=== PATIENT | female | born 1960 | race Caucasian/White ===

== ENCOUNTER 2020-01-09 13:08 | Emergency (ER) | payer BC, MEDICARE, SELFPAY ==
[2020-01-09 13:05] VITALS: BP 133/88; PULSE 80; RESP 18; TEMP 36.9; O2SAT 98
--- NOTE | 2020-01-09 13:15 | ED.FALL ---
HPI - Fall General Chief Complaint: Fall Stated Complaint: FALL/FACIAL LAC Source: patient Mode of arrival: ambulatory Limitations: no limitations History of Present Illness HPI Narrative: Patient is a 59-year-old female who presents to emergency department for evaluation of injuries related to tripping over a hose falling striking the face and injuring the right hand just prior to arrival patient notes wound to the right brow and right hand. Patient notes minimal discomfort states her tetanus is not up-to-date. Patient denies any recent illness patient denies anticoagulant use. Patient presents per EMS Related Data Home Medications Medication Instructions Recorded Confirmed gabapentin 600 mg PO DAILY 01/09/20 01/09/20 levetiracetam [Keppra] 1,000 mg PO BID 01/09/20 01/09/20 Allergies Allergy/AdvReac Type Severity Reaction Status Date / Time No Known Allergies Allergy Verified 01/09/20 13:11 Review of Systems Review of Systems: All systems reviewed & are unremarkable except as noted in HPI and below PMFSH Past Medical History Medical History (Updated 01/09/20 @ 14:07 by Nima Mendez PA-C) Lymphedema Social History Social History (Updated 01/09/20 @ 13:16 by Nima Mendez PA-C) Smoking status: Never smoker Gender identity (if verbalized by the patient): Female Exam Narrative: Exam Narrative: GENERAL: Well-appearing, well-nourished, and in no acute distress. HEAD: Normocephalic, superficial laceration the right lateral brow EYES: PERRLA and EOMI. ENT: Nares clear, no rhinorrhea or epistaxis. Mucous membranes moist. Oropharynx without tonsillar hypertrophy exudate or other lesions. NECK: Supple. No adenopathy or masses. CHEST: Clear to auscultation. No respiratory distress. No wheezes rales or rhonchi HEART: Regular rate and rhythm. No murmur heard. Normal peripheral pulses. EXTREMITIES: Normal range of motion. No edema. No midline cervical thoracic or lumbar tenderness SKIN: Warm, dry, no rash. Superficial abrasions of the fourth and fifth digits of the right hand NEURO: No focal deficits. Alert and oriented x3. Cranial nerves II through XII grossly intact. Normal speech. Neurovascularly intact PSYCH: Normal mood and affect. Course Course Emergency Course: Patient in the room aware of case findings treatment plan and diagnosis agreeing to follow-up as directed or to return if symptoms worsen or concerns Vital Signs Vital signs: Vital Signs Temperature 98.4 F 01/09/20 13:05 Pulse Rate 80 01/09/20 13:05 Respiratory Rate 18 01/09/20 13:05 Blood Pressure 133/88 01/09/20 13:05 Pulse Oximetry 98 01/09/20 13:05 Temperature 98.4 F 01/09/20 13:05 Pulse Rate 80 01/09/20 13:05 Respiratory Rate 18 01/09/20 13:05 Blood Pressure 133/88 01/09/20 13:05 Pulse Oximetry 98 01/09/20 13:05 Procedures Laceration Laceration 1: Date: 01/09/20 Time: 14:06 Site: face Size (cm): 1.5 Description: irregular Depth: simple, single layer Local Anesthetic: none Pre-repair: wound explored and irrigated ====== Skin Level ====== Skin layer closed with: dermabond ====== Subcutaneous Layer ====== ====== Muscle Layer ====== ====== Tendon Layer ====== MDM - Fall MDM Narrative Medical decision making narrative: Patient in the room aware of case findings treatment plan and diagnosis agreeing to follow-up as directed or to return if symptoms worsen or concerns Discharge Plan Discharge Clinical Impression: Head injury, Abrasion hand, Facial laceration Patient Disposition: Home, Self-Care Condition: Stable Instructions: Antibiotic Form, Head Injury (ED) Additional Instructions: Follow up with your primary care doctor in 5-7 days for re-evaluation. Go to ER for worsening pain, vision changes, nausea/vomiting, fever/chills, weakness, chest pain, shortness of breath, numbness/ting
[2020-01-09] MEDS: TETANUS,DIPHTHERIA,AC PERTUSSIS ADULT (0.5 ML) BOOSTRIX IM (13:17)
[2020-01-09 14:35] VITALS: BP 144/84; PULSE 71; RESP 17; O2SAT 100
== END 2020-01-09 14:36 | disposition home or self-care (01) ==
PROVIDERS: Emergency Provider Emergency Medicine
DX: S01.101A Unspecified open wound of right eyelid and periocular area, initial encounter (principal); S60.511A Abrasion of right hand, initial encounter; W18.09XA Striking against other object with subsequent fall, initial encounter; Z23 Encounter for immunization
CPT/HCPCS: 12011; 90471; 90715; 99282